=== PATIENT | male | born 1975 | race Asian ===

== ENCOUNTER 2024-12-12 10:44 | Outpatient (CLI) | payer OTHER, SELFPAY ==
--- NOTE | ~2024-12-12 | US_ITS ---
US soft tissue head and neck INDICATION: Right neck lump TECHNIQUE: Real-time sonographic images of the thyroid gland were obtained. COMPARISON: No prior studies for comparison. FINDINGS: The right thyroid lobe measures 5.9 x 2.3 x 2.1 cm. In the right lobe there is a complicate d cyst measuring 2.7 x 2.3 x 1.6 cm, TR 1. The left thyroid lobe measures 5.3 x 1.8 x 1.2 cm. There i s normal echotexture and echogenicity throughout the thyroid gland. No discrete nodules identified. Normal vascular flow is present. IMPRESSION: 1. Complicated 2.7 cm cyst of the right thyroid lobe, TR 1. No abnormalities are identified which me et sonographic criteria for biopsy. Reviewed, dictated and finalized at location B. IMPRESSION: 1. Complicated 2.7 cm cyst of the right thyroid lobe, TR 1. No abnormalities a re identified which meet sonographic criteria for biopsy.
== END 2024-12-12 10:45 | disposition home or self-care (01) ==
LOC: GOSHIMG 10:45
PROVIDERS: PCP Nurse Practitioner Family; Visit Provider Nurse Practitioner Family
DX: E04.1 Nontoxic single thyroid nodule (principal)
CPT/HCPCS: 76536